=== PATIENT | female | born 2000 | race Two or more races ===

== ENCOUNTER 2021-10-07 16:02 | Inpatient (IN) | payer OTHER ==
[~2021-10-07] VITALS: Ht 165.1 cm; Wt 82.1 kg
[2021-10-07] MEDS ORDERED: PRENATAL + DHA1 EAC1 PO (16:49)
== END 2021-10-09 14:09 | disposition home or self-care (01) | DRG 807 ==
LOC: LDR 16:02 → OB/GYN 16:02
PROVIDERS: ADMIT Obstetrics & Gynecology; ATTEND Obstetrics & Gynecology
PROC: 4A1HXCZ Monitoring of Products of Conception, Cardiac Rate, External Approach (ICD-10-PCS; 2021-10-07)
PROC: 10E0XZZ Delivery of Products of Conception, External Approach (ICD-10-PCS; principal; 2021-10-08)
PROC: 0W8NXZZ Division of Female Perineum, External Approach (ICD-10-PCS; 2021-10-08)
DX: O80 Encounter for full-term uncomplicated delivery (principal); Z37.0 Single live birth; Z3A.38 38 weeks gestation of pregnancy; Z20.822 Contact with and (suspected) exposure to COVID-19